=== PATIENT | female | born 1965 | race Hispanic/Latino ===

== ENCOUNTER 2016-11-16 08:49 | Emergency (ER) | payer MEDICARE, OTHER ==
[2016-11-16 08:53] VITALS: BP 147/92; PULSE 92; TEMP 97
[2016-11-16 08:54] VITALS: BMI 32.1
[2016-11-16 09:01] VITALS: O2SAT 98
--- NOTE | 2016-11-16 09:21 | ED PDOC ---
HPI: Back Time Seen by Provider: 11/16/16 09:08 Chief Complaint (Nursing): Back Pain Chief Complaint (Provider): Low back pain History Per: Patient History/Exam Limitations: no limitations Onset/Duration Of Symptoms: Days (2 years) Current Symptoms Are (Timing): Still Present Additional Complaint(s): Left low back spasms off and on for 2 years. Has had multiple doctor visits and studies. Had MRI recently and no acute findings per pt. Pt. states takes ultram as needed for pain. Took tylenol 6 hrs ago. 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 Has no numbness, tingles, incontinence, constipation, weakness. No abd pain, dysuria. No chest pain. No new injury. Not a new pain. Same pain as usual. Past Medical History Reviewed: Nursing Documentation, Vital Signs Vital Signs: Last Vital Signs Temp 97 F L 11/16/16 08:53 Pulse 92 H 11/16/16 08:53 Resp BP 147/92 H 11/16/16 08:53 Pulse Ox 98 11/16/16 08:58 - Medical History PMH: Back Problems, CVA, Hypercholesterolemia, Migraine - Family History Family History: States: Unknown Family Hx - Social History Current smoker - smoking cessation education provided: No Alcohol: None Drugs: Denies - Home Medications Home Medications: Ambulatory Orders Medication Instructions Recorded Diazepam [Valium] 2 mg PO BID PRN #6 tab 06/28/15 Lorazepam [Ativan] 1 tab PO DAILY 06/28/15 Oxcarbazepine [Trileptal] 1 tab PO DAILY 06/28/15 Pramipexole Dihydrochloride 1 tab PO HS 06/28/15 [Mirapex] Simvastatin [Simvastatin] 1 tab PO BID 06/28/15 Topiramate [Topamax] 1 tab LA BID 06/28/15 Tramadol HCl [Ultram] 1 tab PO BID 06/28/15 Warfarin Sodium [Coumadin] 2 tab PO DAILY 06/28/15 traMADol [Ultram] 50 mg PO ASDIR #25 tab 10/20/15 Hydrochlorothiazide 25 mg PO DAILY #30 tablet 12/19/15 traMADol [Ultram] 50 mg PO Q6H PRN #10 tab 10/27/16 - Allergies Allergies/Adverse Reactions: Allergies Allergy/AdvReac Type Severity Reaction Status Date / Time No Known Allergies Allergy Verified 11/16/16 08:57 Review of Systems Constitutional: Negative for: Weakness Cardiovascular: Negative for: Chest Pain, Edema Respiratory: Negative for: Shortness of Breath Gastrointestinal: Negative for: Nausea, Vomiting, Abdominal Pain, Diarrhea, Constipation, Rectal Pain Genitourinary Female: Negative for: Dysuria, Frequency, Incontinence Musculoskeletal: Negative for: Neck Pain, Shoulder Pain, Arm Pain, Back Pain, Hand Pain, Leg Pain Skin: Negative for: Rash Neurological: Negative for: Weakness, Numbness, Incoordination Physical Exam - Reviewed Nursing Documentation Reviewed: Yes Vital Signs Reviewed: Yes - Physical Exam Appears: Positive for: Non-toxic, No Acute Distress Neck: Positive for: Normal, Painless ROM, Supple Cardiovascular/Chest: Positive for: Regular Rate, Rhythm. Negative for: Edema Respiratory: Positive for: Normal Breath Sounds Gastrointestinal/Abdominal: Positive for: Normal Exam, Bowel Sounds, Soft. Negative for: Tenderness Back: Positive for: Other (mild left lateral low back padder; no erythema). Negative for: L CVA Tenderness, R CVA Tenderness Extremity: Positive for: Normal ROM, Other (neg straight leg test). Negative for: Tenderness, Pedal Edema Neurologic/Psych: Positive for: Alert, Oriented - ECG O2 Sat by Pulse Oximetry: 98 - Progress ED Course And Treament: 923: Stable. AAOx3. Chronic pain. No new issues today. Ambulates with no issues. Tolerates po. Urinating well. MRI showed disc bulging. Pt. to fu with pcp. No narcotics. Disposition - Clinical Impression Clinical Impression: Chronic back pain - Patient ED Disposition Is Patient to be Admitted: No Counseled Patient/Family Regarding: Diagnosis, Need For Followup - Disposition Referrals: [facility] [Outside] Disposition: Routine/Home Disposition Time: 09:25 Condition: FAIR Additional Instructions: Return if not better in 3 days. Instructions: Chronic Back Pain (ED)
== END 2016-11-16 09:39 | disposition home or self-care (01) ==
LOC: H.ER 08:49
DX: M54.9 Dorsalgia, unspecified (principal); E78.00 Pure hypercholesterolemia, unspecified; Z86.73 Personal history of transient ischemic attack (TIA), and cerebral infarction without residual deficits

== ENCOUNTER 2016-11-29 01:42 | Emergency (ER) | payer MEDICARE, OTHER ==
[2016-11-29 01:42] VITALS: BMI 32.1
[2016-11-29 02:11] VITALS: BP 154/77; RESP 16; TEMP 97.5; O2SAT 100
[2016-11-29] MEDS ORDERED: guaiFENesin 100 mg/5 ml Syrup UD PO STA (02:14)
[2016-11-29] MEDS ORDERED: Albuterol-Ipratrop 3 mg / 0.5 (3 ml) UD INH STA (02:14)
[2016-11-29] MEDS ORDERED: guaiFENesin 100 mg/5 ml Syrup UD ONE (02:15)
[2016-11-29] MEDS ORDERED: Albuterol-Ipratrop 3 mg / 0.5 (3 ml) UD ONE (02:15)
--- NOTE | 2016-11-29 03:29 | ED PDOC ---
HPI: CCC, URI, Sore Throat Time Seen by Provider: 11/29/16 02:06 Chief Complaint (Nursing): Cough, Cold, Congestion Chief Complaint (Provider): Cough & Congestion History Per: Patient History/Exam Limitations: no limitations Onset/Duration Of Symptoms: Days (x2) Current Symptoms Are (Timing): Still Present Location Of Pain: denies: Throat Associated Symptoms: denies: Fever, Sore Throat Ear Symptoms: Bilateral: None Additional Complaint(s): 51 year old female presents to ED with complaint of cough, congestion, and SOB x2 days and has a past medical history of blood clots (taking coumadin) and seizures. (-) fever, chest pain, headache, or sore throat. Notes that she recently quit smoking. PCP: Hortencia Nixon Past Medical History Reviewed: Historical Data, Nursing Documentation, Vital Signs Vital Signs: Last Vital Signs Temp 97.5 F L 11/29/16 02:09 Pulse 80 11/29/16 03:37 Resp 16 11/29/16 02:09 BP 154/77 H 11/29/16 02:09 Pulse Ox 100 11/29/16 03:37 - Medical History PMH: Back Problems, CVA, Hypercholesterolemia, Hyperlipidemia, Migraine, Seizures Denies: No Chronic Diseases - Surgical History Surgical History: Denies: No Surg Hx Other surgeries: Brain surgery - Family History Family History: States: Unknown Family Hx - Social History Current smoker - smoking cessation education provided: Yes (Patient states she has recently quit) Ex-Smoker (has not smoked in the last 12 months): No Drugs: Denies - Home Medications Home Medications: Ambulatory Orders Medication Instructions Recorded Diazepam [Valium] 2 mg PO BID PRN #6 tab 06/28/15 Lorazepam [Ativan] 1 tab PO DAILY 06/28/15 Oxcarbazepine [Trileptal] 1 tab PO DAILY 06/28/15 Pramipexole Dihydrochloride 1 tab PO HS 06/28/15 [Mirapex] Simvastatin [Simvastatin] 1 tab PO BID 06/28/15 Topiramate [Topamax] 1 tab [place] BID 06/28/15 Tramadol HCl [Ultram] 1 tab PO BID 06/28/15 Warfarin Sodium [Coumadin] 2 tab PO DAILY 06/28/15 traMADol [Ultram] 50 mg PO ASDIR #25 tab 10/20/15 Hydrochlorothiazide 25 mg PO DAILY #30 tablet 12/19/15 traMADol [Ultram] 50 mg PO Q6H PRN #10 tab 10/27/16 Albuterol HFA [Ventolin HFA 90 1 - 2 puff IH Q4 PRN #1 inhaler 11/29/16 mcg/actuation (8 g)] Azithromycin [Zithromax] 250 mg PO DAILY #6 tab 11/29/16 guaiFENesin [guaifENESIN] 100 mg PO TID PRN #100 ml 11/29/16 - Allergies Allergies/Adverse Reactions: Allergies Allergy/AdvReac Type Severity Reaction Status Date / Time No Known Allergies Allergy Verified 11/16/16 08:57 Review of Systems ROS Statement: Except As Marked, All Systems Reviewed And Found Negative Constitutional: Negative for: Fever ENT: Positive for: Nose Congestion. Negative for: Throat Pain Cardiovascular: Negative for: Chest Pain Respiratory: Positive for: Cough, Shortness of Breath Neurological: Negative for: Headache Physical Exam - Reviewed Nursing Documentation Reviewed: Yes Vital Signs Reviewed: Yes - Physical Exam Appears: Positive for: Non-toxic, No Acute Distress Skin: Positive for: Normal Color, Warm, Dry Eye Exam: Positive for: Normal appearance, EOMI, PERRL ENT: Positive for: Normal ENT Inspection Neck: Positive for: Normal Cardiovascular/Chest: Positive for: Regular Rate, Rhythm. Negative for: Murmur Respiratory: Positive for: Wheezing (trace bilateral wheezing in bilateral bases of lungs). Negative for: Respiratory Distress Gastrointestinal/Abdominal: Positive for: Soft. Negative for: Tenderness Back: Positive for: Normal Inspection Extremity: Positive for: Normal ROM. Negative for: Deformity, Swelling (no lower extremity edema) Neurologic/Psych: Positive for: Alert, Oriented. Negative for: Motor/Sensory Deficits - ECG ECG: Positive for: Interpreted By Me ECG Rhythm: Positive for: Normal QRS, Sinus Rhythm Interpretation Of ECG: No acute changes. Rate: 80 O2 Sat by Pulse Oximetry: 100 (RA) Pulse Ox Interpretation: Normal - Radiology X-Ray: Interpreted by Me, Viewed By Me X-Ray Interpretation: No Acute Disease, Heart Size (normal) Nexus Criteria: Negative Medical Decision Making Medical Decision Makin Initial plan: * Duoneb 3mL INH * Robitussin 100mg PO * Peak flow pre/post tx * Re-eval 0326 Upon re-evaluation, patient is sleeping. Lungs are clear. Normal pulse ox level. Given albuterol and Robitussin in ED, will be discharged with the same. Azithromycin will also be prescribed given smoking history. Patient will follow up with PCP. Patient is stable for discharge. Patient is medically stable and ready for discharge. Counseling has been provided and patient is in agreement. Return if symptoms persist or acutely worsen. Scribe Attestation: Documented by Paloma Martínez acting as a scribe for Melvin Stiles DO. Scribe Attestation: All medical record entries made by the Scribe were at my direction and personally dictated by me. I have reviewed the chart and agree that the record accurately reflects my personal performance of the history, physical exam, medical decision making, and the department course for this patient. I have also personally directed, reviewed, and agree with the discharge instructions and disposition. Disposition - Clinical Impression Clinical Impression: Cough - Patient ED Disposition Is Patient to be Admitted: No Counseled Patient/Family Regarding: Studies Performed, Diagnosis, Need For Followup, Rx Given - Disposition Referrals: Hortencia Nixon MD [Primary Care Provider] - Disposition: Routine/Home Disposition Time: 03:30 Condition: STABLE Additional Instructions: Return to ER for any worse or new symptoms. Prescriptions: guaiFENesin [guaifENESIN] 100 mg PO TID PRN #100 ml PRN Reason: Cough Albuterol HFA [Ventolin HFA 90 mcg/actuation (8 g)] 1 - 2 puff IH Q4 PRN #1 inhaler PRN Reason: Shortness Of Breath Azithromycin [Zithromax] 250 mg PO DAILY #6 tab Instructions: Acute Cough (ED)
[2016-11-29 03:36] VITALS: PULSE 80
--- NOTE | 2016-11-29 08:32 | RAD ---
HISTORY: cough COMPARISON: Comparison is made to the previous study dated 07/31/2011 TECHNIQUE: Chest PA and lateral FINDINGS: LUNGS: No evidence of focal infiltrate or consolidation in the lungs. Prominent lung markings. PLEURA: No significant pleural effusion identified. No pneumothorax apparent. CARDIOVASCULAR: Normal. OSSEOUS STRUCTURES: No significant abnormalities. VISUALIZED UPPER ABDOMEN: Normal. OTHER FINDINGS: None. IMPRESSION: No radiographic evidence of pneumonia. Prominent lung markings and bronchial wall thickening suspicious for bronchitis.
== END 2016-11-29 03:52 | disposition home or self-care (01) ==
LOC: H.ER 01:42
DX: R05 Cough (principal)

== ENCOUNTER 2016-12-18 12:10 | Emergency (ER) | payer MEDICARE, OTHER ==
[2016-12-18 12:10] VITALS: BMI 32.1
[2016-12-18 12:28] VITALS: BP 141/82; PULSE 91; RESP 16; TEMP 99.4; O2SAT 100
--- NOTE | 2016-12-18 12:41 | ED PDOC ---
Lower Extremity Pain/Injury Time Seen by Provider: 12/18/16 12:39 Chief Complaint (Nursing): Lower Extremity Problem/Injury Chief Complaint (Provider): left foot pain History Per: Patient (51 y/o femlae here with left foot pain after striking foot against cart. Patient notes pain by lateral aspect of foot. No head injury /fall. Is on coumadin for h/o CVA.) Past Medical History Reviewed: Historical Data, Nursing Documentation, Vital Signs Vital Signs: Last Vital Signs Temp 99.4 F 12/18/16 12:24 Pulse 91 H 12/18/16 12:24 Resp 16 12/18/16 12:24 BP 141/82 12/18/16 12:24 Pulse Ox 100 12/18/16 12:24 - Medical History PMH: Back Problems, CVA, Hypercholesterolemia, Hyperlipidemia, Migraine, Seizures - Family History Family History: States: Unknown Family Hx - Home Medications Home Medications: Ambulatory Orders Medication Instructions Recorded Diazepam [Valium] 2 mg PO BID PRN #6 tab 06/28/15 Lorazepam [Ativan] 1 tab PO DAILY 06/28/15 Oxcarbazepine [Trileptal] 1 tab PO DAILY 06/28/15 Pramipexole Dihydrochloride 1 tab PO HS 06/28/15 [Mirapex] Simvastatin [Simvastatin] 1 tab PO BID 06/28/15 Topiramate [Topamax] 1 tab SC BID 06/28/15 Tramadol HCl [Ultram] 1 tab PO BID 06/28/15 Warfarin Sodium [Coumadin] 2 tab PO DAILY 06/28/15 traMADol [Ultram] 50 mg PO ASDIR #25 tab 10/20/15 Hydrochlorothiazide 25 mg PO DAILY #30 tablet 12/19/15 traMADol [Ultram] 50 mg PO Q6H PRN #10 tab 10/27/16 Albuterol HFA [Ventolin HFA 90 1 - 2 puff IH Q4 PRN #1 inhaler 11/29/16 mcg/actuation (8 g)] Azithromycin [Zithromax] 250 mg PO DAILY #6 tab 11/29/16 guaiFENesin [guaifENESIN] 100 mg PO TID PRN #100 ml 11/29/16 oxyCODONE/Acetaminophen [Percocet 1 ea PO Q6 PRN #8 tab 12/18/16 5/325 mg Tab] - Allergies Allergies/Adverse Reactions: Allergies Allergy/AdvReac Type Severity Reaction Status Date / Time No Known Allergies Allergy Verified 12/18/16 12:24 Review of Systems ROS Statement: Except As Marked, All Systems Reviewed And Found Negative Musculoskeletal: Positive for: Foot Pain Physical Exam - Reviewed Nursing Documentation Reviewed: Yes Vital Signs Reviewed: Yes - Physical Exam Appears: Positive for: Well, Non-toxic, No Acute Distress Head Exam: Positive for: ATRAUMATIC, NORMAL INSPECTION, NORMOCEPHALIC Skin: Positive for: Normal Color, Warm, DRY Eye Exam: Positive for: EOMI, Normal appearance, PERRL ENT: Positive for: Normal ENT Inspection Neck: Positive for: Normal, Painless ROM Cardiovascular/Chest: Positive for: Regular Rate, Rhythm Respiratory: Positive for: CNT, Normal Breath Sounds Gastrointestinal/Abdominal: Positive for: Normal Exam, Bowel Sounds, Soft Back: Positive for: Normal Inspection Extremity: Positive for: Normal ROM, Tenderness (tenderness/swelling fourth/ fifth digit of left foot. Nontender ankle.) Neurologic/Psych: Positive for: Alert, Oriented - ECG O2 Sat by Pulse Oximetry: 100 - Progress ED Course And Treament: Acetaminophen 975mg x 1 dose. Patient refused tylenol in ED Ultram 50 mg x 1 dose Xry of foot: (+) fx of proximal phalanx of fifth toe. Darvin tape and Hard shoe given Disposition - Clinical Impression Clinical Impression: Toe fracture, right - Patient ED Disposition Is Patient to be Admitted: No - Disposition Referrals: [facility] [[facility]] Disposition: Routine/Home Disposition Time: 13:06 Condition: FAIR Prescriptions: oxyCODONE/Acetaminophen [Percocet 5/325 mg Tab] 1 ea PO Q6 PRN #8 tab PRN Reason: Pain, Severe (8-10) Instructions: Toe Fracture (ED)
--- NOTE | 2016-12-18 16:43 | RAD ---
PROCEDURE: Left Foot Radiographs. HISTORY: injury COMPARISON: None. FINDINGS: BONES: Acute fracture proximal phalanx 5th digit. JOINTS: Normal. SOFT TISSUES: Soft tissue swelling attests to the acuity of the fracture. OTHER FINDINGS: None. IMPRESSION: Acute fracture 5th digit. Concordant results with the preliminary interpretation rendered by the emergency department physician procedure.
== END 2016-12-18 13:28 | disposition home or self-care (01) ==
LOC: H.ER 12:10
DX: S92.911A Unspecified fracture of right toe(s), initial encounter for closed fracture (principal); W22.8XXA Striking against or struck by other objects, initial encounter; Y92.89 Other specified places as the place of occurrence of the external cause; E78.00 Pure hypercholesterolemia, unspecified; Z79.01 Long term (current) use of anticoagulants; Z86.73 Personal history of transient ischemic attack (TIA), and cerebral infarction without residual deficits

== ENCOUNTER 2017-07-03 02:38 | Emergency (ER) | payer MEDICARE, OTHER ==
[2017-07-03 02:38] VITALS: BMI 29.2
[2017-07-03 03:11] VITALS: BP 149/89; PULSE 91; RESP 16; TEMP 98.6; O2SAT 98
[2017-07-03] MEDS ORDERED: Albuterol-Ipratrop 3 mg / 0.5 (3 ml) UD INH STA ×2 (03:43→04:09)
[2017-07-03] MEDS ORDERED: Albuterol-Ipratrop 3 mg / 0.5 (3 ml) UD ONE (03:54)
--- NOTE | 2017-07-03 04:32 | ED PDOC ---
HPI: CCC, URI, Sore Throat Time Seen by Provider: 07/03/17 03:44 Chief Complaint (Nursing): Flu-like Symptoms Chief Complaint (Provider): flu like symptoms History Per: Patient History/Exam Limitations: no limitations Onset/Duration Of Symptoms: Days (14), Persistent Current Symptoms Are (Timing): Still Present Location Of Pain: Diffuse Myalgias, Headache Sick Contacts (Context): None Associated Symptoms: Fever, Chills, Sore Throat, Cough, Sputum, Myalgias. denies: Neck Pain, Sinus Drainage, Nasal Congestion, Nausea, Vomiting, Diarrhea Ear Symptoms: Bilateral: None Past Medical History Reviewed: Historical Data, Nursing Documentation, Vital Signs Vital Signs: Last Vital Signs Temp 98.6 F 07/03/17 03:09 Pulse 91 H 07/03/17 03:09 Resp 16 07/03/17 03:09 BP 149/89 07/03/17 03:09 Pulse Ox 98 07/03/17 03:09 - Medical History PMH: Back Problems, CVA, Hypercholesterolemia, Hyperlipidemia, Migraine, Seizures - Family History Family History: States: Unknown Family Hx - Home Medications Home Medications: Ambulatory Orders Medication Instructions Recorded Diazepam [Valium] 2 mg PO BID PRN #6 tab 06/28/15 Lorazepam [Ativan] 1 tab PO DAILY 06/28/15 Oxcarbazepine [Trileptal] 1 tab PO DAILY 06/28/15 Pramipexole Dihydrochloride 1 tab PO HS 06/28/15 [Mirapex] Simvastatin [Simvastatin] 1 tab PO BID 06/28/15 Topiramate [Topamax] 1 tab [place] BID 06/28/15 Tramadol HCl [Ultram] 1 tab PO BID 06/28/15 Warfarin Sodium [Coumadin] 2 tab PO DAILY 06/28/15 traMADol [Ultram] 50 mg PO ASDIR #25 tab 10/20/15 Hydrochlorothiazide 25 mg PO DAILY #30 tablet 12/19/15 traMADol [Ultram] 50 mg PO Q6H PRN #10 tab 10/27/16 Albuterol HFA [Ventolin HFA 90 1 - 2 puff IH Q4 PRN #1 inhaler 11/29/16 mcg/actuation (8 g)] Azithromycin [Zithromax] 250 mg PO DAILY #6 tab 11/29/16 guaiFENesin [guaifENESIN] 100 mg PO TID PRN #100 ml 11/29/16 Acetaminophen/Codeine 1 tab PO Q6 #8 tab 12/18/16 [Tylenol/Codeine 300 MG/30 MG] Albuterol HFA [Ventolin HFA 90 2 puff IH Q6 #200 puff 07/03/17 mcg/actuation (8 g)] Promethazine DM [Phenergan DM 5 ml PO BID #60 ml 07/03/17 Syrup] - Allergies Allergies/Adverse Reactions: Allergies Allergy/AdvReac Type Severity Reaction Status Date / Time No Known Allergies Allergy Verified 07/03/17 03:09 Curb-65 Severity Score - CURB-65 Severity Score Confusion: No Bun >19mg/dl (>7mmol/L): No Respiratory Rate greater than/equal to 30: No Systolic BP <90 or Diastolic BP less than/equal 60mmHg: No Age >64: No Curb-65 Score: 0 Percentage 30-day mortality: 0.6% Review of Systems ROS Statement: Except As Marked, All Systems Reviewed And Found Negative Constitutional: Positive for: Fever, Chills, Malaise Respiratory: Positive for: Cough, Sputum Gastrointestinal: Negative for: Nausea, Vomiting, Abdominal Pain, Diarrhea Physical Exam - Reviewed Nursing Documentation Reviewed: Yes Vital Signs Reviewed: Yes - Physical Exam Appears: Positive for: Non-toxic, No Acute Distress, Uncomfortable Head Exam: Positive for: ATRAUMATIC, NORMAL INSPECTION, NORMOCEPHALIC Skin: Positive for: Normal Color, Warm, DRY Eye Exam: Positive for: EOMI, Normal appearance, PERRL ENT: Positive for: Normal ENT Inspection Cardiovascular/Chest: Positive for: Regular Rate, Rhythm Respiratory: Positive for: CNT, Normal Breath Sounds Extremity: Positive for: Normal ROM Neurologic/Psych: Positive for: Alert, Oriented - ECG O2 Sat by Pulse Oximetry: 98 - Radiology X-Ray: Interpreted by Al X-Ray Interpretation: No Acute Disease Nebulizer Treatments/Peak Flow - Duonebs Number of Bronchodilator Doses given?: 1 - Steroid Treatment Steroid: Not Clinically Indicated - Clinical Response Clinical Response: Improved Medical Decision Making Medical Decision Making: dX: viral URI/bronchitis d/c on promethezine/albuterol and advised to have pmd f.u Disposition - Clinical Impression Clinical Impression: Bronchitis - Patient ED Disposition Is Patient to be Admitted: No Counseled Patient/Family Regarding: Diagnosis, Need For Followup, Rx Given - Disposition Referrals: Hortencia Nixon MD [Primary Care Provider] - Disposition: Routine/Home Disposition Time: 04:34 Condition: STABLE Prescriptions: Albuterol HFA [Ventolin HFA 90 mcg/actuation (8 g)] 2 puff IH Q6 #200 puff Promethazine DM [Phenergan DM Syrup] 5 ml PO BID #60 ml Instructions: Acute Bronchitis (ED)
--- NOTE | 2017-07-03 08:31 | RAD ---
HISTORY: Cough. COMPARISON: 11/29/2016. TECHNIQUE: Chest PA and lateral FINDINGS: LUNGS: No active pulmonary disease. PLEURA: No significant pleural effusion identified. No pneumothorax apparent. CARDIOVASCULAR: No radiographic findings to suggest acute or significant cardiovascular disease. OSSEOUS STRUCTURES: No significant abnormalities. VISUALIZED UPPER ABDOMEN: Normal. OTHER FINDINGS: None. IMPRESSION: No active disease. No significant interval change compared to the prior examination(s). Please note: No preliminary interpretation of this examination rendered by emergency department personnel (Physician and/or PA declined to provide preliminary report of their findings/ observations).
== END 2017-07-03 04:54 | disposition home or self-care (01) ==
LOC: H.ER 02:38
DX: J40 Bronchitis, not specified as acute or chronic (principal); E78.00 Pure hypercholesterolemia, unspecified; Z79.01 Long term (current) use of anticoagulants; Z86.73 Personal history of transient ischemic attack (TIA), and cerebral infarction without residual deficits

== ENCOUNTER 2017-10-14 04:15 | Emergency (ER) | payer MEDICARE, OTHER ==
[2017-10-14 04:16] VITALS: BMI 29.2
[2017-10-14 04:44] VITALS: BP 109/75; PULSE 83; RESP 16; TEMP 97.8; O2SAT 99
--- NOTE | 2017-10-14 05:18 | ED PDOC ---
HPI: Dental Pain/Injury Time Seen by Provider: 10/14/17 04:15 Chief Complaint (Nursing): Dental Pain Chief Complaint (Provider): Dental Pain History Per: Patient History/Exam Limitations: no limitations Onset/Duration Of Symptoms: Days (x3) Current Symptoms Are (Timing): Still Present Additional Complaint(s): 52 year old female presents to ED with complaints of dental pain x3 days and has a history of tooth issues with a prior extraction. Notes pain in right upper back and right lower back regions of the mouth. Patient states that she works with a dentist who informed her to follow up regarding pain but notes her dentist is unavailable currently. (-) fever or vomiting. PCP: Moe Staley Past Medical History Reviewed: Historical Data, Nursing Documentation, Vital Signs Vital Signs: Last Vital Signs Temp 97.8 F 10/14/17 04:41 Pulse 83 10/14/17 04:41 Resp 16 10/14/17 04:41 BP 109/75 10/14/17 04:41 Pulse Ox 99 10/14/17 04:41 - Medical History PMH: Back Problems, CVA, Hypercholesterolemia, Hyperlipidemia, Migraine, Seizures, Chronic Pain (chronic back pain) - Surgical History Surgical History: No Surg Hx - Family History Family History: States: Unknown Family Hx - Social History Current smoker - smoking cessation education provided: No Alcohol: None Drugs: Denies - Home Medications Home Medications: Ambulatory Orders Medication Instructions Recorded Diazepam [Valium] 2 mg PO BID PRN #6 tab 06/28/15 Lorazepam [Ativan] 1 tab PO DAILY 06/28/15 Oxcarbazepine [Trileptal] 1 tab PO DAILY 06/28/15 Pramipexole Dihydrochloride 1 tab PO HS 06/28/15 [Mirapex] Simvastatin [Simvastatin] 1 tab PO BID 06/28/15 Topiramate [Topamax] 1 tab VT BID 06/28/15 Tramadol HCl [Ultram] 1 tab PO BID 06/28/15 Warfarin Sodium [Coumadin] 2 tab PO DAILY 06/28/15 traMADol [Ultram] 50 mg PO ASDIR #25 tab 10/20/15 Hydrochlorothiazide 25 mg PO DAILY #30 tablet 12/19/15 traMADol [Ultram] 50 mg PO Q6H PRN #10 tab 10/27/16 Albuterol HFA [Ventolin HFA 90 1 - 2 puff IH Q4 PRN #1 inhaler 11/29/16 mcg/actuation (8 g)] Azithromycin [Zithromax] 250 mg PO DAILY #6 tab 11/29/16 guaiFENesin [guaifENESIN] 100 mg PO TID PRN #100 ml 11/29/16 Acetaminophen/Codeine 1 tab PO Q6 #8 tab 12/18/16 [Tylenol/Codeine 300 MG/30 MG] Albuterol HFA [Ventolin HFA 90 2 puff IH Q6 #200 puff 07/03/17 mcg/actuation (8 g)] Promethazine DM [Phenergan DM 5 ml PO BID #60 ml 07/03/17 Syrup] Amoxicillin 500 mg PO BID #14 tablet 10/14/17 - Allergies Allergies/Adverse Reactions: Allergies Allergy/AdvReac Type Severity Reaction Status Date / Time hydromorphone [From Dilaudid] Allergy RASH Verified 10/14/17 04:41 Review of Systems ROS Statement: Except As Marked, All Systems Reviewed And Found Negative Constitutional: Negative for: Fever ENT: Positive for: Other ((+) tooth pain) Gastrointestinal: Negative for: Vomiting Physical Exam - Reviewed Nursing Documentation Reviewed: Yes Vital Signs Reviewed: Yes - Physical Exam Appears: Positive for: Non-toxic, No Acute Distress Skin: Positive for: Normal Color, Warm, Dry Eye Exam: Positive for: Normal appearance, EOMI, PERRL ENT: Positive for: Normal ENT Inspection (No abscess noted, no fluctuance or necrosis) Neck: Positive for: Normal, Painless ROM, Supple Cardiovascular/Chest: Positive for: Regular Rate, Rhythm Respiratory: Positive for: Normal Breath Sounds Gastrointestinal/Abdominal: Positive for: Bowel Sounds, Soft. Negative for: Tenderness Extremity: Positive for: Normal ROM - ECG O2 Sat by Pulse Oximetry: 99 (RA) Pulse Ox Interpretation: Normal Medical Decision Making Medical Decision Makin Initial impression: tooth decay Initial plan: * Toradol 60mg IM * Re-eval pt feels better. will follow up with dentist. Scribe Attestation: Documented by Paloma Martínez acting as a scribe for Trisha Johnson MD. Scribe Attestation: All medical record entries made by the Scribe were at my direction and personally dictated by me. I have reviewed the chart and agree that the record accurately reflects my personal performance of the history, physical exam, medical decision making, and the department course for this patient. I have also personally directed, reviewed, and agree with the discharge instructions and disposition. Disposition - Clinical Impression Clinical Impression: Pain, dental - Patient ED Disposition Is Patient to be Admitted: No Counseled Patient/Family Regarding: Studies Performed, Diagnosis, Need For Followup - Disposition Referrals: Moe Staley MD [Primary Care Provider] - Disposition: Routine/Home Disposition Time: 06:00 Condition: IMPROVED Additional Instructions: follow up with your dentist in 1-2 days return to the ED with any worsening or concerning symptoms Prescriptions: Amoxicillin 500 mg PO BID #14 tablet Instructions: Toothache (ED) Forms: [facility] (Scottish)
== END 2017-10-14 06:00 | disposition home or self-care (01) ==
LOC: H.ER 04:15
DX: K02.9 Dental caries, unspecified (principal); Z86.73 Personal history of transient ischemic attack (TIA), and cerebral infarction without residual deficits; Z88.5 Allergy status to narcotic agent; Z79.01 Long term (current) use of anticoagulants
CPT/HCPCS: 96372; 99282; J1885

== ENCOUNTER 2017-11-12 09:37 | Emergency (ER) | payer MEDICARE, OTHER ==
[2017-11-12 09:45] VITALS: BMI 34.0
[2017-11-12] MEDS ORDERED: Albuterol-Ipratrop 3 mg / 0.5 (3 ml) UD IH STA (10:11)
[2017-11-12] MEDS ORDERED: Sodium Chloride 0.9% 500 ML IV STA (10:11)
--- NOTE | 2017-11-12 10:17 | ED PDOC ---
HPI: SOB/CHF/COPD Time Seen by Provider: 11/12/17 09:49 Chief Complaint (Nursing): Shortness Of Breath Chief Complaint (Provider): Short of breath History Per: Patient History/Exam Limitations: no limitations Onset/Duration Of Symptoms: Days Current Symptoms Are (Timing): Still Present Additional History Per: Patient Additional Complaint(s): Pt. with dyspnea, pain under both ribs going to back, nasal congestion. No chest pain, headaches, dizziness, lower abd pain, leg pain, long distance travel , or hormone tx. Pt. feels weak mild all over. Had vomit and diarrhea 2 weeks ago, but gone now. Past Medical History Reviewed: Nursing Documentation, Vital Signs Vital Signs: Last Vital Signs Temp 98 F 11/12/17 09:45 Pulse 102 H 11/12/17 09:45 Resp 20 11/12/17 09:53 BP 145/66 11/12/17 09:45 Pulse Ox 98 11/12/17 10:19 - Medical History PMH: Back Problems, CVA, Hypercholesterolemia, Hyperlipidemia, Migraine, Seizures, Chronic Pain (chronic back pain) Denies: Chronic Kidney Disease - Surgical History Surgical History: Denies: Appendectomy, Back Surgery Other surgeries: hysterectomy - Family History Family History: States: Unknown Family Hx - Social History Current smoker - smoking cessation education provided: No Alcohol: None Drugs: Denies - Immunization History Hx Tetanus Toxoid Vaccination: No Hx Influenza Vaccination: No Hx Pneumococcal Vaccination: No - Home Medications Home Medications: Ambulatory Orders Medication Instructions Recorded Diazepam [Valium] 2 mg PO BID PRN #6 tab 06/28/15 Lorazepam [Ativan] 1 tab PO DAILY 06/28/15 Oxcarbazepine [Trileptal] 1 tab PO DAILY 06/28/15 Pramipexole Dihydrochloride 1 tab PO HS 06/28/15 [Mirapex] Simvastatin [Simvastatin] 1 tab PO BID 06/28/15 Topiramate [Topamax] 1 tab [place] BID 06/28/15 Tramadol HCl [Ultram] 1 tab PO BID 06/28/15 Warfarin Sodium [Coumadin] 2 tab PO DAILY 06/28/15 traMADol [Ultram] 50 mg PO ASDIR #25 tab 10/20/15 Hydrochlorothiazide 25 mg PO DAILY #30 tablet 12/19/15 traMADol [Ultram] 50 mg PO Q6H PRN #10 tab 10/27/16 Albuterol HFA [Ventolin HFA 90 1 - 2 puff IH Q4 PRN #1 inhaler 11/29/16 mcg/actuation (8 g)] Azithromycin [Zithromax] 250 mg PO DAILY #6 tab 11/29/16 guaiFENesin [guaifENESIN] 100 mg PO TID PRN #100 ml 11/29/16 Acetaminophen/Codeine 1 tab PO Q6 #8 tab 12/18/16 [Tylenol/Codeine 300 MG/30 MG] Albuterol HFA [Ventolin HFA 90 2 puff IH Q6 #200 puff 07/03/17 mcg/actuation (8 g)] Promethazine DM [Phenergan DM 5 ml PO BID #60 ml 07/03/17 Syrup] Amoxicillin 500 mg PO BID #14 tablet 10/14/17 - Allergies Allergies/Adverse Reactions: Allergies Allergy/AdvReac Type Severity Reaction Status Date / Time ciprofloxacin [From Cipro] Allergy RASH Verified 11/12/17 10:39 hydromorphone [From Dilaudid] Allergy RASH Verified 10/14/17 04:41 Review of Systems ROS Statement: Except As Marked, All Systems Reviewed And Found Negative Constitutional: Positive for: Weakness ENT: Positive for: Nose Congestion Respiratory: Positive for: Shortness of Breath. Negative for: Cough Gastrointestinal: Positive for: Abdominal Pain (under ribs) Musculoskeletal: Negative for: Neck Pain Neurological: Positive for: Weakness Physical Exam - Reviewed Nursing Documentation Reviewed: Yes Vital Signs Reviewed: Yes - Physical Exam Appears: Positive for: Non-toxic, No Acute Distress Head Exam: Positive for: ATRAUMATIC, NORMAL INSPECTION, NORMOCEPHALIC Skin: Positive for: Normal Color, Warm, DRY Eye Exam: Positive for: EOMI, Normal appearance, PERRL ENT: Positive for: Normal ENT Inspection Neck: Positive for: Normal, Painless ROM Cardiovascular/Chest: Positive for: Regular Rate, Rhythm Respiratory: Positive for: CNT, Normal Breath Sounds Gastrointestinal/Abdominal: Positive for: Bowel Sounds, Soft, Tenderness (mild across upper abd near ribs) Back: Positive for: Normal Inspection. Negative for: L CVA Tenderness, R CVA Tenderness Extremity: Positive for: Normal ROM. Negative for: Tenderness, Pedal Edema Neurologic/Psych: Positive for: Alert, Oriented - Laboratory Results Result Diagrams: 11/12/17 11:01 11/12/17 11:01 Interpretation Of Abn Labs: 8.2 inr - ECG ECG: Positive for: Interpreted By Me, Viewed By Me ECG Rhythm: Positive for: Normal QRS, Normal ST Segment, Sinus Rhythm O2 Sat by Pulse Oximetry: 98 Pulse Ox Interpretation: Normal - Radiology X-Ray: Read By Radiologist X-Ray Interpretation: No Acute Disease - CT Scan/US ct Other Rad Studies (CT/US): Read By Radiologist Other Rad Interpretation: no acute - Progress ED Course And Treament: 1419: Feels better. AAOx3. No dyspnea or pain. Pt. INR elevated. Per uptodate (pt. with no bleeding or risk factors for fa, omit the next one to two doses of warfarin, monitor INR more frequently, and resume treatment at a lower dose when INR is in therapeutic range. Pt. to fu with pcp for repeat INR and determine dosing. Disposition - Clinical Impression Clinical Impression: Supratherapeutic INR, Dyspnea - Patient ED Disposition Is Patient to be Admitted: No Counseled Patient/Family Regarding: Studies Performed, Diagnosis, Need For Followup - Disposition Referrals: [facility] [Outside] - 11/13/17 Disposition: Routine/Home Disposition Time: 14:22 Condition: STABLE Additional Instructions: Omit the next two doses of warfarin (coumadin) and resume treatment at a lower dose when INR is in therapeutic range (see your doctor tomorrow for this). See your doctor for repeat INR. Return if not better in 3 days. Instructions: Shortness of Breath (Dyspnea) (DC), What to Do When Your INR Is Too High Forms: [employer] (Azeri), [facility] ED School/Work Excuse
[2017-11-12] MEDS ORDERED: Albuterol-Ipratrop 3 mg / 0.5 (3 ml) UD ONE (10:25)
--- NOTE | 2017-11-12 10:35 | RAD ---
HISTORY: dyspnea COMPARISON: Chest radiograph dated 07/03/2017. FINDINGS: LUNGS: Low lung volumes. No active pulmonary disease. PLEURA: No significant pleural effusion identified, no pneumothorax apparent. CARDIOVASCULAR: Normal. OSSEOUS STRUCTURES: No significant abnormalities. VISUALIZED UPPER ABDOMEN: Normal. OTHER FINDINGS: None. IMPRESSION: No active disease.
[2017-11-12 11:07] LABS: BASO % 0.6 % (0.0-2.0); EOS # 0.1 K/uL (0.0-0.7); EOS % 1.9 % (0.0-4.0); HEMOGLOBIN 11.6 g/dL (12.0-16.0); LYMPH # 1.8 K/uL (1.0-4.3); LYMPH % 32.8 % (20.0-40.0); MEAN CELL VOLUME 87.8 fl (81.0-99.0); MEAN CORPUSCULAR HEMOGLOBIN 29.6 pg (27.0-31.0); MEAN CORPUSCULAR HGB CONC 33.8 g/dL (33.0-37.0); MEAN PLATELET VOLUME 7.8 fl (7.2-11.7); MONO # 0.4 K/uL (0.0-0.8); MONO % 6.7 % (0.0-10.0); NEUT # 3.1 K/uL (1.8-7.0); NRBC % 0.2 % (0.0-0.0); RBC 3.9 Mil/uL (3.80-5.20); RED CELL DISTRIBUTION WIDTH 14.2 % (11.5-14.5); WHITE BLOOD COUNT 5.4 K/uL (4.8-10.8)
[2017-11-12 11:20] LABS: ALB/GLOB RATIO 1.3 (1.0-2.1); ALBUMIN 3.7 g/dL (3.5-5.0); ALT/SGPT 117 U/L (9-52); AST/SGOT 83 U/L (14-36); BLOOD UREA NITROGEN 12 mg/dl (7-17); CALCIUM 8.5 mg/dL (8.4-10.2); GFR AFRICAN-AMERICAN > 60; GFR NON-AFRICAN AMERICAN > 60; LIPASE 86 U/L (23-300)
[2017-11-12 11:32] LABS: B-TYPE NATRIURETIC PEPTIDE 81.6 pg/ml (0-900); INR 8.2 (0.9-1.2); PARTIAL THROMBOPLASTIN TIME 48.1 Seconds (25.6-37.1)
[2017-11-12 12:30] LABS: PROTHROMBIN TIME 94.7 Seconds (9.8-13.1)
[2017-11-12] MEDS ORDERED: Iodixanol 320 MG/ML 100 ML BOTTLE IV ONE (12:47)
--- NOTE | 2017-11-12 13:27 | CT ---
PROCEDURE: CT Chest with contrast (Pulmonary Angiogram) HISTORY: chest pain COMPARISON: None available. TECHNIQUE: Axial computed tomography images were obtained of the chest in the pulmonary arterial phase of enhancement. Coronal and sagittal reformatted images were created and reviewed. Intravenous contrast dose: 95 cc Visipaque 320 Mean Hounsfield unit values in the main pulmonary artery: 208.66 Radiation dose: Total exam DLP = 431.70 mGy-cm. This CT exam was performed using one or more of the following dose reduction techniques: Automated exposure control, adjustment of the mA and/or kV according to patient size, and/or use of iterative reconstruction technique. FINDINGS: PULMONARY ARTERIES: Unremarkable. No pulmonary embolism. AORTA: No acute findings. No thoracic aortic aneurysm. LUNGS: Unremarkable. No nodule, mass or pulmonary consolidation. PLEURAL SPACES: Unremarkable. No effusion or pneuomothorax. HEART: Unremarkable. No cardiomegaly. No significant pericardial effusion. LYMPH NODES: No lymphadenopathy. BONES, CHEST WALL: Unremarkable. No fracture or destructive lesion OTHER FINDINGS: Hepatomegaly, hepatic steatosis IMPRESSION: Unremarkable CT pulmonary angiogram. No pulmonary embolus. Limitations of the current examination: Suboptimal opacification of the pulmonary arteries both qualitatively and quantitatively. Nondiagnostic examination in the Assessment of subsegmental branch vessels for pulmonary embolism
[2017-11-12 14:43] VITALS: BP 151/89; PULSE 85; RESP 16; TEMP 98.1; O2SAT 96
--- NOTE | 2017-11-12 15:11 | CARD ---
APPROVED REPORT EKG Measurement Heart [id number] <Conclusion> Sinus tachycardia Otherwise normal ECG
== END 2017-11-12 14:45 | disposition home or self-care (01) ==
LOC: H.ER 09:37
DX: R06.00 Dyspnea, unspecified (principal); R79.1 Abnormal coagulation profile; E78.00 Pure hypercholesterolemia, unspecified; G89.29 Other chronic pain; I26.99 Other pulmonary embolism without acute cor pulmonale; Z79.01 Long term (current) use of anticoagulants; Z86.73 Personal history of transient ischemic attack (TIA), and cerebral infarction without residual deficits; Z88.5 Allergy status to narcotic agent; Z90.710 Acquired absence of both cervix and uterus
CPT/HCPCS: 71045; 71275; 80053; 83690; 83880; 84484; 85025; 85610; 85730; 87804; 93005; 94640; 96360; 96361; 99285; J7040; Q9967

== ENCOUNTER 2017-11-22 12:26 | Emergency (ER) | payer MEDICARE, OTHER ==
[2017-11-22 12:27] VITALS: BMI 34.0
[2017-11-22 12:40] VITALS: BP 123/84; PULSE 93; RESP 18; TEMP 98.3; O2SAT 97
[2017-11-22] MEDS ORDERED: Morphine 4 MG/ML VIAL IM STA (12:54)
[2017-11-22] MEDS ORDERED: Morphine 4 MG/ML VIAL ONE (13:07)
--- NOTE | 2017-11-22 13:19 | ED PDOC ---
HPI: Dental Pain/Injury Time Seen by Provider: 11/22/17 12:44 Chief Complaint (Nursing): Dental Pain Chief Complaint (Provider): Dental Pain History Per: Patient History/Exam Limitations: no limitations Onset/Duration Of Symptoms: Days Current Symptoms Are (Timing): Still Present Additional Complaint(s): 52 year old female presents to the emergency department with a complaint of pain and swelling to the right lower jaw region with dental pain for the past few days. Denies taking any pain medications, fever, headache, sore throat, chills, or rash. PMD: Dr. Moe Staley MD Past Medical History Reviewed: Historical Data, Nursing Documentation, Vital Signs Vital Signs: Last Vital Signs Temp 98.3 F 11/22/17 12:37 Pulse 93 H 11/22/17 12:37 Resp 18 11/22/17 12:37 BP 123/84 11/22/17 12:37 Pulse Ox 97 11/22/17 12:37 - Medical History PMH: Back Problems, CVA, Hypercholesterolemia, Hyperlipidemia, Migraine, Seizures, Chronic Pain (chronic back pain) Denies: Chronic Kidney Disease - Surgical History Surgical History: Denies: Appendectomy, Back Surgery - Family History Family History: States: Unknown Family Hx - Social History Current smoker - smoking cessation education provided: No Ex-Smoker (has not smoked in the last 12 months): Yes Alcohol: Occasional Drugs: Denies - Immunization History Hx Tetanus Toxoid Vaccination: No Hx Influenza Vaccination: No Hx Pneumococcal Vaccination: No - Home Medications Home Medications: Ambulatory Orders Medication Instructions Recorded Diazepam [Valium] 2 mg PO BID PRN #6 tab 06/28/15 Lorazepam [Ativan] 1 tab PO DAILY 06/28/15 Oxcarbazepine [Trileptal] 1 tab PO DAILY 06/28/15 Pramipexole Dihydrochloride 1 tab PO HS 06/28/15 [Mirapex] Simvastatin [Simvastatin] 1 tab PO BID 06/28/15 Topiramate [Topamax] 1 tab [place] BID 06/28/15 Tramadol HCl [Ultram] 1 tab PO BID 06/28/15 Warfarin Sodium [Coumadin] 2 tab PO DAILY 06/28/15 traMADol [Ultram] 50 mg PO ASDIR #25 tab 10/20/15 Hydrochlorothiazide 25 mg PO DAILY #30 tablet 12/19/15 traMADol [Ultram] 50 mg PO Q6H PRN #10 tab 10/27/16 Albuterol HFA [Ventolin HFA 90 1 - 2 puff IH Q4 PRN #1 inhaler 11/29/16 mcg/actuation (8 g)] Azithromycin [Zithromax] 250 mg PO DAILY #6 tab 11/29/16 guaiFENesin [guaifENESIN] 100 mg PO TID PRN #100 ml 11/29/16 Acetaminophen/Codeine 1 tab PO Q6 #8 tab 12/18/16 [Tylenol/Codeine 300 MG/30 MG] Albuterol HFA [Ventolin HFA 90 2 puff IH Q6 #200 puff 07/03/17 mcg/actuation (8 g)] Promethazine DM [Phenergan DM 5 ml PO BID #60 ml 07/03/17 Syrup] Amoxicillin 500 mg PO BID #14 tablet 10/14/17 Clindamycin [Cleocin] 300 mg PO TID #30 cap 11/22/17 traMADol [Ultram] 50 mg PO TID PRN #15 tab 11/22/17 - Allergies Allergies/Adverse Reactions: Allergies Allergy/AdvReac Type Severity Reaction Status Date / Time ciprofloxacin [From Cipro] Allergy RASH Verified 11/12/17 10:39 hydromorphone [From Dilaudid] Allergy RASH Verified 10/14/17 04:41 Review of Systems ROS Statement: Except As Marked, All Systems Reviewed And Found Negative (As per HPI, otherwise negative) Constitutional: Negative for: Fever, Chills ENT: Positive for: Other (Right-sided dental pain). Negative for: Throat Pain Skin: Negative for: Rash Neurological: Negative for: Headache Physical Exam - Reviewed Nursing Documentation Reviewed: Yes Vital Signs Reviewed: Yes - Physical Exam Appears: Positive for: Non-toxic, No Acute Distress Head Exam: Positive for: NORMAL INSPECTION Skin: Positive for: Warm. Negative for: Cyanosis ENT: Positive for: Pharynx Is (Clear. ), Other (Swelling to the right mandibular region with swelling to the right lower gumline). Negative for: Tonsillar Exudate (No sinus swelling or tenderness. No tongue elevation. No submandibular or submental neck swelling. No pseudomembranes. ) Neck: Positive for: Normal, Supple. Negative for: Pain On Movement Of Neck ( crepitus) Neurologic/Psych: Positive for: Alert, Oriented (x3) - ECG O2 Sat by Pulse Oximetry: 97 (RA) Pulse Ox Interpretation: Normal Medical Decision Making Medical Decision Making: Time: 1254 Initial impression: Dental abscess Initial plan: --Cleocin 300 mg PO --Morphine 4 mg IM --Zofran 4 mg PO --Reevaluation Time: 1330 --Patient is medically stable for discharge and given Rx for Cleocin 300 mg and Ultram 50 mg. Advised to follow up with dentist in 1-2 days without fail. Advised to take medication as prescribed. Return to the emergency room at any time for any new or worsening symptoms. Patient states she fully agrees with and understands discharge instructions. States that she agrees with the plan and disposition. Verbalized and repeated discharge instructions and plan. I have given the patient opportunity to ask any additional questions. Scribe Attestation: Documented by Camryn Hurtado, acting as a scribe for Luz Elena Argueta PA-C Provider Scribe Attestation: All medical record entries made by the Scribe were at my direction and personally dictated by me. I have reviewed the chart and agree that the record accurately reflects my personal performance of the history, physical exam, medical decision making, and the department course for this patient. I have also personally directed, reviewed, and agree with the discharge instructions and disposition. Disposition - Clinical Impression Clinical Impression: Dental abscess - Patient ED Disposition Is Patient to be Admitted: No Counseled Patient/Family Regarding: Diagnosis, Need For Followup, Rx Given - Disposition [facility]errals: [facility] [Outside] Disposition: Routine/Home Disposition Time: 13:00 Condition: STABLE Additional Instructions: Thank you for letting us take care of you today. You were treated for toothache , dental abscess. The emergency medical care you received today was directed at your acute symptoms. If you were prescribed any medication, please fill it and take as directed. It may take several days for your symptoms to resolve. Return to the Emergency Department if your symptoms worsen, do not improve, or if you have any other problems. Please contact one of the physicians/clinics you have been referred to that are listed on the Patient Visit Information form that is included in your discharge packet. Bring any paperwork you were given at discharge with you along with any medications you are taking to your follow up visit. Our treatment cannot replace ongoing medical care by a primary care provider (PCP) outside of the emergency department. Thank you for allowing the [facility] team to be part of your care today. 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
== END 2017-11-22 13:31 | disposition home or self-care (01) ==
LOC: H.ER 12:26
DX: K04.7 Periapical abscess without sinus (principal); Z79.01 Long term (current) use of anticoagulants; Z86.73 Personal history of transient ischemic attack (TIA), and cerebral infarction without residual deficits; Z88.5 Allergy status to narcotic agent; E78.00 Pure hypercholesterolemia, unspecified; G89.29 Other chronic pain
CPT/HCPCS: 81025; 96372; 99282; J2270

== ENCOUNTER 2017-11-24 15:23 | Emergency (ER) | payer MEDICARE, OTHER ==
[2017-11-24 15:24] VITALS: BMI 34.0
[2017-11-24 15:37] VITALS: BP 152/90; PULSE 92; RESP 16; TEMP 99.3; O2SAT 98
[2017-11-24] MEDS ORDERED: Piperacillin/Tazobact 3.375 GM in Sodium Chloride 0.9% 100 ML IV STA (16:18)
[2017-11-24] MEDS ORDERED: Morphine 4 MG/ML VIAL IVP STA ×2 (16:18→19:07)
[2017-11-24] MEDS ORDERED: Piperacillin/Tazobact 3.375 gm Inj IVPB ONE (16:24)
[2017-11-24] MEDS ORDERED: Morphine 4 MG/ML VIAL ONE ×2 (16:24→22:02)
[2017-11-24] MEDS ORDERED: Piperacillin/Tazobact 3.375 GM in Dextrose 5% In Water 100 ML IV STA (16:37)
--- NOTE | 2017-11-24 16:38 | ED PDOC ---
HPI: Dental Pain/Injury Time Seen by Provider: 11/24/17 15:45 Chief Complaint (Nursing): Dental Pain Chief Complaint (Provider): Dental Pain and RIght Lower jaw swelling History Per: Patient History/Exam Limitations: no limitations Onset/Duration Of Symptoms: Days (x2 weeks) Current Symptoms Are (Timing): Still Present Quality: "Pain" Additional Complaint(s): 52 year old female presents to the emergency department to be evaluated for right sided jaw swelling which began on Saturday and dental pain x2 weeks. Patient states that she was seen here in the emergency department and prescribed clindamycin and tramadol but reports that he symptoms have only gotten worse. Patient states that the pain and swelling increased in intensity today prompting her to presents to the ED. She complains that the pain now radiates from her right jaw into her chest and back. As per patient, she has been told that she needs crowns and root canals but states that she cannot have the procedure performed due to insurance issues. [facility] Patient Left Against Medical Advice: The patient declines admission to the hospital and wishes to leave the Emergency Department. This action is against my medical advice. This decision was made with informed refusal. The patient was told that admission to the hospital is necessary. Explanation of the reasons why were discussed. The risks of leaving were explained to the patient and include, but are not limited to, worsening of known or currently unknown conditions, permanent disability and from undiagnosed or untreated conditions. The patient has the capacity to make this informed decision and understands my explanation of the current medical problem and risks of leaving. The patient voluntarily accepts these risks and signed an AMA form documenting our conversation. The patient was given the opportunity to ask questions and reconsider. The patient was encouraged to return to the Emergency Department at any time for further care. Past Medical History Reviewed: Historical Data, Nursing Documentation, Vital Signs Vital Signs: Last Vital Signs Temp 99.3 F 11/24/17 15:33 Pulse 92 H 11/24/17 15:33 Resp 16 11/24/17 15:33 BP 152/90 H 11/24/17 15:33 Pulse Ox 98 11/24/17 15:33 - Medical History PMH: Back Problems, CVA, Hypercholesterolemia, Hyperlipidemia, Migraine, Seizures, Chronic Pain (chronic back pain) Denies: Chronic Kidney Disease - Surgical History Surgical History: Denies: Appendectomy, Back Surgery Other surgeries: cranial surgery for blood clot - Family History Family History: States: Unknown Family Hx - Social History Current smoker - smoking cessation education provided: No (former) Ex-Smoker (has not smoked in the last 12 months): No Alcohol: Occasional Drugs: Denies - Immunization History Hx Tetanus Toxoid Vaccination: No Hx Influenza Vaccination: No Hx Pneumococcal Vaccination: No - Home Medications Home Medications: Ambulatory Orders Medication Instructions Recorded Diazepam [Valium] 2 mg PO BID PRN #6 tab 06/28/15 Lorazepam [Ativan] 1 tab PO DAILY 06/28/15 Oxcarbazepine [Trileptal] 1 tab PO DAILY 06/28/15 Pramipexole Dihydrochloride 1 tab PO HS 06/28/15 [Mirapex] Simvastatin [Simvastatin] 1 tab PO BID 06/28/15 Topiramate [Topamax] 1 tab AL BID 06/28/15 Tramadol HCl [Ultram] 1 tab PO BID 06/28/15 Warfarin Sodium [Coumadin] 2 tab PO DAILY 06/28/15 traMADol [Ultram] 50 mg PO ASDIR #25 tab 10/20/15 Hydrochlorothiazide 25 mg PO DAILY #30 tablet 12/19/15 traMADol [Ultram] 50 mg PO Q6H PRN #10 tab 10/27/16 Albuterol HFA [Ventolin HFA 90 1 - 2 puff IH Q4 PRN #1 inhaler 11/29/16 mcg/actuation (8 g)] Azithromycin [Zithromax] 250 mg PO DAILY #6 tab 11/29/16 guaiFENesin [guaifENESIN] 100 mg PO TID PRN #100 ml 11/29/16 Acetaminophen/Codeine 1 tab PO Q6 #8 tab 12/18/16 [Tylenol/Codeine 300 MG/30 MG] Albuterol HFA [Ventolin HFA 90 2 puff IH Q6 #200 puff 07/03/17 mcg/actuation (8 g)] Promethazine DM [Phenergan DM 5 ml PO BID #60 ml 07/03/17 Syrup] Amoxicillin 500 mg PO BID #14 tablet 10/14/17 Clindamycin [Cleocin] 300 mg PO TID #30 cap 11/22/17 traMADol [Ultram] 50 mg PO TID PRN #15 tab 11/22/17 - Allergies Allergies/Adverse Reactions: Allergies Allergy/AdvReac Type Severity Reaction Status Date / Time ciprofloxacin [From Cipro] Allergy RASH Verified 11/24/17 15:32 hydromorphone [From Dilaudid] Allergy RASH Verified 11/24/17 15:32 Review of Systems ROS Statement: Except As Marked, All Systems Reviewed And Found Negative Constitutional: Positive for: Fever (subjective) ENT: Positive for: Other (right lower jaw swelling; Dental Pain) Physical Exam - Reviewed Nursing Documentation Reviewed: Yes Vital Signs Reviewed: Yes - Physical Exam Appears: Positive for: Uncomfortable, In Acute Distress (moderate painful) Head Exam: Positive for: ATRAUMATIC, NORMOCEPHALIC Skin: Positive for: Warm, Dry Eye Exam: Positive for: EOMI, PERRL ENT: Positive for: Other (Large swelling to right anterior mandible with erythema to chin and exquisite tenderness to palpation and mild trismus; Slightly muffled voice;right lower canine with large caries and tenderness on palpation . ) Neck: Positive for: Painless ROM, Supple Cardiovascular/Chest: Positive for: Regular Rate, Rhythm. Negative for: Murmur Respiratory: Positive for: Normal Breath Sounds. Negative for: Respiratory Distress Gastrointestinal/Abdominal: Positive for: Soft. Negative for: Tenderness Back: Positive for: Normal Inspection. Negative for: Muscle Spasm Extremity: Positive for: Normal ROM. Negative for: Deformity Lymphatic: Negative for: Adenopathy Neurologic/Psych: Positive for: Alert. Negative for: Motor/Sensory Deficits - Laboratory Results Result Diagrams: 11/24/17 16:44 11/24/17 16:44 - ECG O2 Sat by Pulse Oximetry: 98 (RA) Pulse Ox Interpretation: Normal - Critical Care Total Time (In Min): 30 Documented Critical Care: Time excludes all time spent performint seperately billable procedures Medical Decision Making Medical Decision Makin Initial Impression 52 y/o female presenting with abscess dental vs. christina angina Differentials: Sepsis, Osteomyelitis, Cellulitis Initial Plan: * VBG * CT Neck Soft Tissue * CMP * Drug Screen * Upreg * Udip * CBC * Partial Thromboplastin * Prothrombin Time * Morphine 4mg IVP * Toradol 15mg IVP * Zosyn 3.375gm NS 100ml IV * Blood Culture * Reevaluation 1906 EXAM: CT Neck With Intravenous Contrast EXAM DATE/TIME: 11/24/2017 4:17 PM CLINICAL HISTORY: 52 years old, female; Pain; Painful swallowing; Additional info: Right lower mandible abscess R/O ludwigs v dental TECHNIQUE: Axial computed tomography images of the neck with intravenous contrast. All CT scans at this facility use one or more dose reduction techniques, viz.: automated exposure control; ma/kV adjustment per patient size (including targeted exams where dose is matched to indication; i.e. head); or iterative reconstruction technique. CONTRAST: 95 mL of [id number] administered intravenously. COMPARISON: No relevant prior studies available. FINDINGS: Nasopharynx: Unremarkable. Oropharynx: Apparent edema in the base of the tongue, posterior tongue and the posterior aspects of the right and left digastric muscles most concerning for lugwig's angina. There is edema and effacement of the planes adjacent the floor of mouth musculature. 0.9 x 0.6 cm abscess abutting a periapical cyst of the right mandibular cuspid. No significant oropharyngeal or hypopharyngeal airway compromise. No significant tonsillar enlargement. Hypopharynx: See above. Larynx: Unremarkable. Normal epiglottis. Trachea: Unremarkable. Retropharyngeal space: Unremarkable. Submandibular/parotid glands: Unremarkable. Glands are normal in size. Thyroid: Unremarkable. No enlarged or calcified nodules. Bones/joints: No acute fracture. Soft tissues: Odontogenic cellulitis or facial soft tissues overlying the right mandible. Vasculature: No acute findings. Lymph nodes: Unremarkable. No lymphadenopathy. Lung apices: See above. IMPRESSION: 1. Apparent edema in the base of the tongue, posterior tongue and the posterior aspects of the right and left digastric muscles most concerning for lugwig's angina. Please also correlate clinically for potential oral cavity narrowing. 2. There is edema and effacement of the planes adjacent the floor of mouth musculature. 0.9 x 0.6 cm abscess abutting a periapical cyst of the right mandibular cuspid. 3. Odontogenic cellulitis in the superficial soft tissues overlying the right mandible. MARCELINA pt findings and need for possible transfer for emergent OMFS management. MARCELINA [facility] transfer center for OMFS treatment. Will call back. Pt requesting to go home first to walk her dog prior to transfer. Reports that there is no one available to walk her dog. MARCELINA pt dangers of diagnosis, specifically extension of edema causing airway obstruction and therefore , and pt says she wants to leave anyway and come right back after walking dog. Understands risks and wants to leave and come back anyway. Pt is oriented x 3 and demonstrates ability to understand risks. AMA signed. 8p [facility] called back with Dr Dorsey [facility] resident. MARCELINA Dorsey clinical presentation and findings at length. Will call back after he discusses with his chief resident. (See further discussion with [facility] in note when patient returned from [facility]) Documented by Desiree Francis acting as a scribe for Rut Carvajal MD. All medical record entries made by the Scribe were at my direction and personally dictated by me. I have reviewed the chart and agree that the record accurately reflects my personal performance of the history, physical exam, medical decision making, and the department course for this patient. I have also personally directed, reviewed, and agree with the discharge instructions and disposition. Disposition - Clinical Impression Clinical Impression: Dental abscess, Ludwigs angina Counseled Patient/Family Regarding: Studies Performed, Diagnosis - Disposition Disposition: Against Medical Advice Disposition Time: 20:00 Condition: UNKNOWN Additional Instructions: RETURN TO ER IMMEDIATELY Instructions: Leaving Against Medical Advice Forms: [employer] (Macedonian)
[2017-11-24 16:48] LABS: BASO # 0.1 K/uL (0.0-0.2); EOS # 0.1 K/uL (0.0-0.7); EOS % 0.9 % (0.0-4.0); HEMOGLOBIN 11.4 g/dL (12.0-16.0); LYMPH # 1.8 K/uL (1.0-4.3); LYMPH % 24.1 % (20.0-40.0); MEAN CELL VOLUME 89.1 fl (81.0-99.0); MEAN CORPUSCULAR HEMOGLOBIN 29.6 pg (27.0-31.0); MEAN CORPUSCULAR HGB CONC 33.3 g/dL (33.0-37.0); MEAN PLATELET VOLUME 8.1 fl (7.2-11.7); MONO # 0.6 K/uL (0.0-0.8); MONO % 8.1 % (0.0-10.0); NEUT # 4.8 K/uL (1.8-7.0); NEUT % 65.9 % (50.0-75.0); NRBC % 0.3 % (0.0-0.0); RBC 3.84 Mil/uL (3.80-5.20); RED CELL DISTRIBUTION WIDTH 14.7 % (11.5-14.5); WHITE BLOOD COUNT 7.3 K/uL (4.8-10.8)
[2017-11-24 16:57] LABS: VENOUS BLOOD GAS PCO2 42 mmHg (40-60); VENOUS BLOOD GAS PO2 39 mm/Hg (30-55); VENOUS BLOOD PH 7.34 (7.32-7.43)
[2017-11-24 17:10] LABS: ALB/GLOB RATIO 1.2 (1.0-2.1); ALBUMIN 4.2 g/dL (3.5-5.0); ALT/SGPT 78 U/L (9-52); AST/SGOT 49 U/L (14-36); BLOOD UREA NITROGEN 12 mg/dl (7-17); CALCIUM 9.3 mg/dL (8.4-10.2); GFR AFRICAN-AMERICAN > 60; GFR NON-AFRICAN AMERICAN > 60
[2017-11-24] MEDS ORDERED: Iohexol 300 100 ML IJ ONE (17:44)
[2017-11-24] MEDS ORDERED: Sodium Chloride 0.9% 100 ML ONE (17:44)
[2017-11-24 17:52] LABS: BARBITURATES, UR NEGATIVE (NEGATIVE); BENZODIAZEPINES, UR NEGATIVE (NEGATIVE); OPIATES, UR POSITIVE (NEGATIVE); PHENCYCLIDINE, UR NEGATIVE (NEGATIVE)
[2017-11-24 18:09] LABS: INR 1.6 (0.9-1.2); PARTIAL THROMBOPLASTIN TIME 34.1 Seconds (25.6-37.1); PROTHROMBIN TIME 18.4 Seconds (9.8-13.1)
[2017-11-24 18:09] LABS: SQUAMOUS EPITHIAL 5 /hpf (0-5); URINE BACTERIA MOD (<OCC); URINE BILIRUBIN NEGATIVE (NEGATIVE); URINE BLOOD NEGATIVE (NEGATIVE); URINE CLARITY CLOUDY (Clear); URINE COLOR YELLOW (YELLOW); URINE GLUCOSE (UA) NEG (Normal); URINE LEUKOCYTE ESTERASE NEG Leu/uL (Negative); URINE PROTEIN NEGATIVE (NEGATIVE); URINE UROBILINOGEN 0.2-1.0 mg/dL (0.2-1.0)
--- NOTE | 2017-11-24 21:12 | CT ---
EXAM: CT Neck With Intravenous Contrast EXAM DATE/TIME: 11/24/2017 4:17 PM CLINICAL HISTORY: 52 years old, female; Pain; Painful swallowing; Additional info: Right lower mandible abscess R/O ludwigs v dental TECHNIQUE: Axial computed tomography images of the neck with intravenous contrast. All CT scans at this facility use one or more dose reduction techniques, viz.: automated exposure control; ma/kV adjustment per patient size (including targeted exams where dose is matched to indication; ie. head); or iterative reconstruction technique. Coronal and sagittal reformatted images were created and reviewed. CONTRAST: 95 mL of [id number] administered intravenously. COMPARISON: No relevant prior studies available. FINDINGS: NASOPHARYNX: No acute abnormality of the nasopharyngeal/adenoidal tonsils identified. OROPHARYNX: No acute abnormality of the palatine tonsils identified. No evidence of peritonsillar abscess. No acute abnormality of the tongue base identified. HYPOPHARYNX: No acute abnormality of the pyriform sinuses visualized. LARYNX: No acute abnormality of the epiglottis identified. No acute abnormality of the vocal cords identified. TRACHEA: Visualized portions of the trachea appear patent. RETROPHARYNGEAL SPACE: No evidence of prevertebral/retropharyngeal fluid or fluid collection. SUBMANDIBULAR/PAROTID GLANDS: No acute abnormality of the submandibular or parotid glands identified. THYROID: No acute abnormality of the thyroid gland identified. BONES/JOINTS: Chronic post operative changes involving the left temporal bone. SOFT TISSUES: Findings highly suspicious for an abscess in the deep right anterior perimandibular soft tissues. Best seen on image 35 of series 2, there is a 1.4 x 7.0 x 1.4 cm masslike, low density area with round anterior margins and a thin, enhancing soft tissue rim, suspicious for an abscess. This is located in the deep right facial soft tissues, directly abutting the right anterior mandible. There is nearby diffuse right facial soft tissue swelling and subcutaneous fat infiltration, highly suspicious for cellulitis. No evidence of soft tissue gas. VASCULATURE: Left internal carotid artery is diffusely small in size. No definite occlusion. LYMPH NODES: Mild lymphadenopathy in the right neck and face, involving the submandibular and jugulodigastric chain regions. The largest lymph node, located in the submandibular region, measures 2.4 x 1.3 cm. This is most likely reactive in etiology. No evidence of diffuse pathologic lymphadenopathy. DENTAL: Findings highly suspicious for a periodontal abscess involving the right lower canine tooth, image 41/series 602. This abuts the suspected deep soft tissue abscess. ESOPHAGUS: No acute abnormality of the upper esophagus identified. LUNG APICES: Lung apices appear clear. IMPRESSION: - Findings highly suspicious for a 1.4 cm abscess in the deep right facial soft tissues, directly abutting the right anterior mandible, associated with diffuse right facial cellulitis. This is most likely related to a periodontal abscess involving the lower right canine tooth. - Diffusely small size of the left internal carotid artery. This could be on a congenital basis. Recommend further evaluation with carotid ultrasound, CT angiogram or MR angiogram. - See above for remaining findings.
== END 2017-11-24 19:44 | disposition left against medical advice (07) ==
LOC: H.ER 15:23
DX: K04.7 Periapical abscess without sinus (principal); K12.2 Cellulitis and abscess of mouth; E78.00 Pure hypercholesterolemia, unspecified; Z86.73 Personal history of transient ischemic attack (TIA), and cerebral infarction without residual deficits; Z79.01 Long term (current) use of anticoagulants; Z88.5 Allergy status to narcotic agent; G89.29 Other chronic pain
CPT/HCPCS: 70491; 80053; 81003; 82803; 85025; 85610; 85730; 87040; 96365; 96375; 99284; G0480; J1885; J2270; J2543; Q9967

== ENCOUNTER 2017-11-24 20:32 | Emergency (ER) | payer MEDICARE, OTHER ==
[2017-11-24 20:32] VITALS: BMI 34.0
[2017-11-24 21:17] VITALS: TEMP 99.3
[2017-11-24] MEDS ORDERED: Sodium Chloride 0.9% 1,000 ML IV STA (21:18)
--- NOTE | 2017-11-24 21:36 | ED PDOC ---
HPI: Dental Pain/Injury Time Seen by Provider: 11/24/17 20:45 Chief Complaint (Nursing): Dental Pain Chief Complaint (Provider): RIGHT jaw swelling History Per: Patient History/Exam Limitations: no limitations Onset/Duration Of Symptoms: Days (3), Gradual, Persistent, Worse Since Current Symptoms Are (Timing): Constant Quality: "Pain" Additional Complaint(s): Seen in ER earlier today and diagnosed with dental abscess with edema of soft tissue floor of mouth. Setup for transfer but wanted to leave to walk dog and has come back. Denies any change in symptoms No food at all today. Has not drunk anything since 9am. Has been unable to eat due to pain. Drank coffee at 9am. PMD Dr Staley Past Medical History Reviewed: Historical Data, Nursing Documentation, Vital Signs Vital Signs: Last Vital Signs Temp 99.3 F 11/24/17 21:12 Pulse 83 11/24/17 21:12 Resp 16 11/24/17 21:12 BP 148/81 11/24/17 21:12 Pulse Ox 96 11/24/17 21:12 - Medical History PMH: Back Problems, CVA, Hypercholesterolemia, Hyperlipidemia, Migraine, Seizures, Chronic Pain (chronic back pain) Denies: Chronic Kidney Disease - Surgical History Surgical History: Denies: Appendectomy, Back Surgery - Family History Family History: States: Unknown Family Hx - Social History Current smoker - smoking cessation education provided: No - Immunization History Hx Tetanus Toxoid Vaccination: No Hx Influenza Vaccination: No Hx Pneumococcal Vaccination: No - Home Medications Home Medications: Ambulatory Orders Medication Instructions Recorded Diazepam [Valium] 2 mg PO BID PRN #6 tab 06/28/15 Lorazepam [Ativan] 1 tab PO DAILY 06/28/15 Oxcarbazepine [Trileptal] 1 tab PO DAILY 06/28/15 Pramipexole Dihydrochloride 1 tab PO HS 06/28/15 [Mirapex] Simvastatin [Simvastatin] 1 tab PO BID 06/28/15 Topiramate [Topamax] 1 tab NM BID 06/28/15 Tramadol HCl [Ultram] 1 tab PO BID 06/28/15 Warfarin Sodium [Coumadin] 2 tab PO DAILY 06/28/15 traMADol [Ultram] 50 mg PO ASDIR #25 tab 10/20/15 Hydrochlorothiazide 25 mg PO DAILY #30 tablet 12/19/15 traMADol [Ultram] 50 mg PO Q6H PRN #10 tab 10/27/16 Albuterol HFA [Ventolin HFA 90 1 - 2 puff IH Q4 PRN #1 inhaler 11/29/16 mcg/actuation (8 g)] Azithromycin [Zithromax] 250 mg PO DAILY #6 tab 11/29/16 guaiFENesin [guaifENESIN] 100 mg PO TID PRN #100 ml 11/29/16 Acetaminophen/Codeine 1 tab PO Q6 #8 tab 12/18/16 [Tylenol/Codeine 300 MG/30 MG] Albuterol HFA [Ventolin HFA 90 2 puff IH Q6 #200 puff 07/03/17 mcg/actuation (8 g)] Promethazine DM [Phenergan DM 5 ml PO BID #60 ml 07/03/17 Syrup] Amoxicillin 500 mg PO BID #14 tablet 10/14/17 Clindamycin [Cleocin] 300 mg PO TID #30 cap 11/22/17 traMADol [Ultram] 50 mg PO TID PRN #15 tab 11/22/17 - Allergies Allergies/Adverse Reactions: Allergies Allergy/AdvReac Type Severity Reaction Status Date / Time ciprofloxacin [From Cipro] Allergy RASH Verified 11/24/17 15:32 hydromorphone [From Dilaudid] Allergy RASH Verified 11/24/17 15:32 Review of Systems ROS Statement: Except As Marked, All Systems Reviewed And Found Negative (and as per HPI) Constitutional: Positive for: Fever, Chills Physical Exam - Reviewed Nursing Documentation Reviewed: Yes Vital Signs Reviewed: Yes - Physical Exam Appears: Positive for: Non-toxic, In Acute Distress Head Exam: Positive for: ATRAUMATIC, NORMOCEPHALIC Skin: Positive for: Warm, Dry Eye Exam: Positive for: EOMI, PERRL ENT: Positive for: Other (ENT: Positive for: Other (Large swelling to right anterior mandible with erythema to chin and exquisite tenderness to palpation and mild trismus;Slightly muffled voice;right lower canine with large caries and tenderness on palpation . )) Neck: Positive for: Painless ROM, Supple Cardiovascular/Chest: Positive for: Regular Rate, Rhythm. Negative for: Murmur Respiratory: Positive for: Normal Breath Sounds. Negative for: Wheezing Gastrointestinal/Abdominal: Positive for: Soft. Negative for: Tenderness Back: Positive for: Normal Inspection. Negative for: Muscle Spasm Extremity: Positive for: Normal ROM. Negative for: Deformity Neurologic/Psych: Positive for: Alert. Negative for: Motor/Sensory Deficits - ECG O2 Sat by Pulse Oximetry: 96 Medical Decision Making Medical Decision Making: IVF order MARCELINA Daily Chief resident OMFS and Dr Guillaume OMFS attending at [facility]. Accepted for transfer. Also MARCELINA [facility] attending. MARCELINA pt and family plan of care. Disposition - Clinical Impression Clinical Impression: Dental abscess Counseled Patient/Family Regarding: Studies Performed, Diagnosis - Disposition Disposition: Other Institution Disposition Time: 21:00 Condition: GUARDED
[2017-11-24] MEDS ORDERED: Morphine 4 MG/ML VIAL IVP STA (21:59)
[2017-11-24 22:12] VITALS: BP 147/75; PULSE 84; RESP 18; O2SAT 99
== END 2017-11-24 22:19 | disposition short-term general hospital (02) ==
LOC: H.ER 20:32
DX: K04.7 Periapical abscess without sinus (principal); Z79.01 Long term (current) use of anticoagulants; Z88.5 Allergy status to narcotic agent; E78.00 Pure hypercholesterolemia, unspecified; G89.29 Other chronic pain; Z86.73 Personal history of transient ischemic attack (TIA), and cerebral infarction without residual deficits
CPT/HCPCS: 96374; 99282; J2270; J7040

== ENCOUNTER 2017-12-10 12:15 | Emergency (ER) | payer MEDICARE, OTHER ==
[2017-12-10 12:16] VITALS: BMI 34.0
[2017-12-10 12:38] VITALS: O2SAT 98
[2017-12-10] MEDS ORDERED: Sodium Chloride 0.9% 1,000 ML IV SCH (12:45)
--- NOTE | 2017-12-10 13:09 | CT ---
PROCEDURE: CT HEAD WITHOUT CONTRAST. HISTORY: facial numbness COMPARISON: Unenhanced head CT examinations 07/31/2011 and 07/27/2007. TECHNIQUE: Axial computed tomography images were obtained through the head/brain without intravenous contrast. Radiation dose: Total exam DLP = 762.80 mGy-cm. This CT exam was performed using one or more of the following dose reduction techniques: Automated exposure control, adjustment of the mA and/or kV according to patient size, and/or use of iterative reconstruction technique. FINDINGS: HEMORRHAGE: No intracranial hemorrhage. BRAIN: No definite acute or subacute intracranial findings are appreciable by standard CT criteria. Patient status post left frontotemporal craniotomy apparently for prior neuro surgical procedure earlier than prior CT 07/27/2007 with stable appearing prominent cystic encephalomalacia appreciated once again at the left frontotemporal distribution. No positive mass effect is appreciated throughout the posterior fossa contents unremarkable. Right cerebral hemispheres unremarkable. Volume loss of the left cerebral hemisphere is appreciate with limited expansion of the ventricular sulcal and cisternal spaces including ex vacuo expansion of left lateral ventricle. No hydrocephalus throughout. No cortical edema is appreciated throughout the exam with follow-up MRI available there is no contraindication for greater detailed soft tissue resolution. VENTRICLES: As above. CALVARIUM: Other in craniotomy noted above, no additional findings throughout the calvarium including the skullbase. PARANASAL SINUSES: Unremarkable as visualized. No significant inflammatory changes. MASTOID AIR CELLS: Unremarkable as visualized. No inflammatory changes. OTHER FINDINGS: None. IMPRESSION: Stable unenhanced head CT including left frontotemporal cystic encephalomalacia in this patient with prior infarct in the past as well as left frontotemporal craniotomy. No intracranial hemorrhage or positive mass effect throughout. No definite cortical edema. Follow-up MRI is available for further clinical characterization if clinically warranted. Findings discussed with Dr. Montes 12/10/2017 with written down and read back verification 1:01 p.m..
[2017-12-10 13:22] LABS: BASO % 0.6 % (0.0-2.0); EOS # 0.1 K/uL (0.0-0.7); EOS % 0.8 % (0.0-4.0); HEMOGLOBIN 12.8 g/dL (12.0-16.0); LYMPH # 1.7 K/uL (1.0-4.3); LYMPH % 25.2 % (20.0-40.0); MEAN CELL VOLUME 87.2 fl (81.0-99.0); MEAN CORPUSCULAR HEMOGLOBIN 29.3 pg (27.0-31.0); MEAN CORPUSCULAR HGB CONC 33.6 g/dL (33.0-37.0); MEAN PLATELET VOLUME 7.8 fl (7.2-11.7); MONO # 0.3 K/uL (0.0-0.8); MONO % 4.9 % (0.0-10.0); NEUT # 4.6 K/uL (1.8-7.0); NEUT % 68.5 % (50.0-75.0); NRBC % 0.1 % (0.0-0.0); RBC 4.37 Mil/uL (3.80-5.20); WHITE BLOOD COUNT 6.7 K/uL (4.8-10.8)
[2017-12-10 13:32] LABS: INR 1.1 (0.9-1.2); PARTIAL THROMBOPLASTIN TIME 30.1 Seconds (25.6-37.1)
--- NOTE | 2017-12-10 13:32 | ED PDOC ---
HPI:STROKE - Historian Historian: Patient - Chief Complaint Chief Complaint: Numbness - Onset Date: 12/09/17 Time: 15:00 - Location Locate right:: Face, Upper extremity, Lower extremity - Notes: Notes:: Pt reports generalized FULLER typical of her usual migraine X 2 days, prescribed Topamax by Dr. Coronado without relief. Pt reports numbness to R face/arm/leg since 3 PM yesterday, resolving and evolving into tingling now. Pt had CVA 24 years ago after which vein from leg was attempted to be implanted into brain but "did not take". Has had same numbness on R side in past, last episode 6 years ago. Denies visual changes, weakness, trauma, fever, neck stiffness. NIHSS Stroke Scale - Date/Time Evaluation Performed Date Performed: 12/10/17 Time Performed: 13:00 When Was NIHSS Performed: Code Stroke - How Severe is the Stroke Level of Consciousness: 0=Alert LOC to Questions: 0=Both comments correct LOC to commands: 0=Obeys both correctly Best Gaze: 0=Normal Visual: 0=No visual loss Facial: 0=Normal Motor Arm - Left: 0=No drift Motor Arm - Right: 0=No drift Motor Leg - Left: 0=No drift Motor Leg - Right: 0=No drift Limb Ataxia: 0=Absent Sensory: 0=Normal Best Language: 0=No aphasia Dysarthia: 0=Normal articulation Extinction & Inattention (Neglect): 0=Normal, no object Score: 0 rTPA Inclusion/Exclusion - Refusal of Treatment Patient Refused Treatment: No - Inclusion Criteria for Altepase Patient is 18 years or Older: Yes The Clinical Diagnosis of Ischemic Stroke That is Causing a Potentially Disabling Neurological Deficit: No Time of Onset is Well Established to be Less Than 270 Minute Before Treatment Would Begin: No Risk/Benefit Discussed With Patient/Family Member Present: No Past Medical History Reviewed: Nursing Documentation, Vital Signs Vital Signs: Last Vital Signs Temp 99.5 F 12/10/17 12:31 Pulse 98 H 12/10/17 12:31 Resp 16 12/10/17 12:31 BP 124/82 12/10/17 12:31 Pulse Ox 98 12/10/17 12:31 - Medical History PMH: Back Problems, CVA, Hypercholesterolemia, Hyperlipidemia, Migraine, Seizures, Chronic Pain (chronic back pain) Denies: Chronic Kidney Disease - Surgical History Surgical History: Denies: Appendectomy, Back Surgery - Family History Family History: States: Unknown Family Hx - Immunization History Hx Tetanus Toxoid Vaccination: No Hx Influenza Vaccination: No Hx Pneumococcal Vaccination: No - Home Medications Home Medications: Ambulatory Orders Medication Instructions Recorded Cyclobenzaprine [Flexeril] 10 mg PO HS 12/10/17 Furosemide [Lasix] 40 mg PO DAILY 12/10/17 Gabapentin [Neurontin] 300 mg PO HS 12/10/17 LORazepam [Ativan] 1 mg PO Q12 PRN 12/10/17 OXcarbazepine [Trileptal] 300 mg PO DAILY 12/10/17 OXcarbazepine [Trileptal] 750 mg PO HS 12/10/17 Cascade-3/Dha/Epa/Fish Oil [Fish Oil 500 mg PO DAILY 12/10/17 500 mg Softgel] Pantoprazole Sodium [Protonix] 40 mg PO DAILY 12/10/17 Pramipexole [Mirapex] 0.5 mg PO DAILY 12/10/17 Pramipexole [Mirapex] 1 mg PO HS 12/10/17 Simvastatin [Zocor] 40 mg PO HS 12/10/17 Topiramate [Topamax] 50 mg PO Q12 12/10/17 Warfarin [Coumadin] 4 mg PO DAILY 12/10/17 traMADol [Ultram] 50 mg PO Q8 PRN 12/10/17 - Allergies Allergies/Adverse Reactions: Allergies Allergy/AdvReac Type Severity Reaction Status Date / Time ciprofloxacin [From Cipro] Allergy RASH Verified 11/24/17 15:32 hydromorphone [From Dilaudid] Allergy RASH Verified 11/24/17 15:32 Review of Systems Constitutional: Negative for: Fever, Chills Eyes: Negative for: Vision Change Cardiovascular: Negative for: Chest Pain, Palpitations Respiratory: Negative for: Cough, Shortness of Breath Gastrointestinal: Negative for: Nausea, Vomiting, Abdominal Pain, Diarrhea Musculoskeletal: Negative for: Neck Pain, Back Pain Skin: Negative for: Rash, Lesions Neurological: Positive for: Numbness, Headache, Dizziness. Negative for: Weakness, Incoordination, Change in Speech, Confusion, Seizures, Altered Mental Status Physical Exam - Reviewed Nursing Documentation Reviewed: Yes Vital Signs Reviewed: Yes - Physical Exam Appears: Positive for: Well, No Acute Distress Head Exam: Positive for: ATRAUMATIC, NORMAL INSPECTION Skin: Positive for: Normal Color, Warm, Dry Eye Exam: Positive for: Normal appearance, EOMI, PERRL Neck: Positive for: Normal, Painless ROM, Supple Cardiovascular/Chest: Positive for: Regular Rate, Rhythm Respiratory: Positive for: Normal Breath Sounds Gastrointestinal/Abdominal: Positive for: Normal Exam Back: Positive for: Normal Inspection Extremity: Positive for: Normal ROM. Negative for: Swelling Neurologic/Psych: Positive for: Alert, hairspring ii inspector II-XII, Oriented. Negative for: Motor/Sensory Deficits, Aphasia, Facial Droop - Laboratory Results Result Diagrams: 12/10/17 13:05 12/10/17 13:05 - ECG O2 Sat by Pulse Oximetry: 98 Pulse Ox Interpretation: Normal - Progress Re-evaluation Time: 17:49 Condition: Improved - Physician Consult Information Time Consulting Physican Contacted: 15:34 Physician Contacted: Redd Coronado Outcome Of Conversation: Case discussed, recommends Depakene 500 mg IVPB over 60 minutes, Solumedrol 250 mg IVP, Benadryl 50 mg, Zofran 4 mg and Toradol 15 mg IV. If FULLER resolved, can be discharged home. Medical Decision Making Medical Decision Makin yo female with resolving R sided numbness. - Code stroke (called by security systems technician) - labs - EKG - CXR - CT head 18:45 FULLER resolved. Disposition - Clinical Impression Clinical Impression: Migraine - Disposition Referrals: Redd Coronado MD [Staff Provider] - Disposition: Routine/Home Disposition Time: 18:34 Condition: IMPROVED Instructions: Migraine Headaches in Adults Forms: [employer] (Tristanian)
[2017-12-10 13:38] LABS: ALB/GLOB RATIO 1.3 (1.0-2.1); ALBUMIN 4.4 g/dL (3.5-5.0); ALT/SGPT 92 U/L (9-52); AST/SGOT 65 U/L (14-36); BLOOD UREA NITROGEN 13 mg/dl (7-17); CALCIUM 9.6 mg/dL (8.4-10.2); GFR AFRICAN-AMERICAN > 60; GFR NON-AFRICAN AMERICAN > 60; HDL CHOLESTEROL 45 MG/DL (30-70)
[2017-12-10 13:46] LABS: LDL CHOLESTEROL 153 mg/dL (0-129)
--- NOTE | 2017-12-10 13:51 | RAD ---
HISTORY: Code Stroke COMPARISON: 11/12/2017. FINDINGS: LUNGS: No active pulmonary disease. PLEURA: No significant pleural effusion identified, no pneumothorax apparent. CARDIOVASCULAR: Normal. OSSEOUS STRUCTURES: No significant abnormalities. VISUALIZED UPPER ABDOMEN: Normal. OTHER FINDINGS: None. IMPRESSION: No active disease. No significant interval change compared to the prior examination(s).
[2017-12-10] MEDS ORDERED: DiphenhydrAMINE 50 mg/ml Inj IVP STA (15:41)
[2017-12-10] MEDS ORDERED: Valproate 500 MG in Sodium Chloride 0.9% 100 ML IVPB STA (15:50)
[2017-12-10] MEDS ORDERED: DiphenhydrAMINE 50 mg/ml Inj ONE (16:07)
[2017-12-10 16:20] VITALS: RESP 18
[2017-12-10 18:05] VITALS: BP 136/82; PULSE 91; TEMP 98.5
--- NOTE | 2017-12-11 09:19 | CARD ---
APPROVED REPORT EKG Measurement Heart [id number] <Conclusion> Normal sinus rhythm Normal ECG
== END 2017-12-10 18:50 | disposition home or self-care (01) ==
LOC: H.ER 12:15
DX: G43.909 Migraine, unspecified, not intractable, without status migrainosus (principal); G93.89 Other specified disorders of brain; Z86.73 Personal history of transient ischemic attack (TIA), and cerebral infarction without residual deficits; Z88.5 Allergy status to narcotic agent; G89.29 Other chronic pain; Z79.01 Long term (current) use of anticoagulants; E78.00 Pure hypercholesterolemia, unspecified
CPT/HCPCS: 70450; 71045; 80053; 80061; 82948; 83036; 84484; 85025; 85610; 85730; 86850; 86900; 93005; 96365; 96375; 99285; J1200; J1885; J2405; J2930; J7040

== ENCOUNTER 2018-05-31 15:18 | Emergency (ER) | payer MEDICARE, OTHER ==
[2018-05-31 15:18] VITALS: BMI 34.0
[2018-05-31 15:32] VITALS: TEMP 98.6
[2018-05-31] MEDS ORDERED: Albuterol-Ipratrop 3 mg / 0.5 (3 ml) UD IH STA (15:47)
--- NOTE | 2018-05-31 15:52 | ED PDOC ---
History of Present Illness History of Present Illness: 53 y/o male with a PMHx of Asthma presents to the ED for evaluation of cough, productive white sputum and congestion associated with left sided back pain, onset 2 days ago. Denies fever and shortness of breath. PMD: None Provided HPI: Influenza Time Seen by Provider: 05/31/18 15:39 Chief Complaint: Cough, Cold, Congestion Chief Complaint (Provider): Cough, Cold, Congestion History Per: Patient Exam Limitations: no limitations Symptoms include: cough, nasal congestion. denies: fever Past Medical History Reviewed: Historical Data, Nursing Documentation, Vital Signs Vital Signs: Last Vital Signs Temp 98.6 F 05/31/18 15:30 Pulse 70 05/31/18 15:30 Resp 18 05/31/18 15:30 BP 161/116 H 05/31/18 15:30 Pulse Ox 99 05/31/18 15:30 - Medical History PMH: Asthma, Back Problems, CVA, Hypercholesterolemia, Hyperlipidemia, Migraine, Seizures, Chronic Pain (chronic back pain) Denies: Chronic Kidney Disease - Surgical History Surgical History: No Surg Hx Denies: Appendectomy, Back Surgery - Family History Family History: States: Unknown Family Hx - Immunization History Hx Tetanus Toxoid Vaccination: No Hx Influenza Vaccination: No Hx Pneumococcal Vaccination: No - Home Medications Home Medications: Ambulatory Orders Medication Instructions Recorded Cyclobenzaprine [Flexeril] 10 mg PO HS 12/10/17 Furosemide [Lasix] 40 mg PO DAILY 12/10/17 Gabapentin [Neurontin] 600 mg PO HS 12/10/17 LORazepam [Ativan] 1 mg PO Q12 PRN 12/10/17 OXcarbazepine [Trileptal] 300 mg PO QAM 12/10/17 Pantoprazole Sodium [Protonix] 40 mg PO DAILY 12/10/17 Pramipexole [Mirapex] 0.25 mg PO DAILY 12/10/17 Simvastatin [Zocor] 40 mg PO HS 12/10/17 Topiramate [Topamax] 50 mg PO Q12 12/10/17 Warfarin [Coumadin] 4 mg PO DAILY 12/10/17 traMADol [Ultram] 50 mg PO Q8 PRN 12/10/17 Azithromycin [Zithromax] 250 mg PO DAILY #6 tab 05/31/18 OXcarbazepine [Trileptal] 750 mg PO QPM 05/31/18 Prednisone 50 mg PO DAILY #5 tab 05/31/18 traMADol [Ultram] 50 mg PO Q8 #10 tab 05/31/18 - Allergies Allergies/Adverse Reactions: Allergies Allergy/AdvReac Type Severity Reaction Status Date / Time ciprofloxacin [From Cipro] Allergy RASH Verified 05/31/18 15:30 hydromorphone [From Dilaudid] Allergy RASH Verified 05/31/18 15:30 Review of Systems ROS Statement: Except As Marked, All Systems Reviewed And Found Negative Constitutional: Negative for: Fever ENT: Positive for: Nose Congestion Respiratory: Positive for: Cough. Negative for: Shortness of Breath Musculoskeletal: Positive for: Back Pain Physical Exam - Reviewed Nursing Documentation Reviewed: Yes Vital Signs Reviewed: Yes - Physical Exam Appears: Positive for: Non-toxic, No Acute Distress Head Exam: Positive for: ATRAUMATIC, NORMOCEPHALIC Skin: Positive for: Normal Color, Warm, Dry Eye Exam: Positive for: Normal appearance, EOMI, PERRL Neck: Positive for: Normal, Painless ROM Cardiovascular/Chest: Positive for: Regular Rate, Rhythm. Negative for: Murmur Respiratory: Positive for: Decreased Breath Sounds, Rhonchi (scattered). Negative for: Accessory Muscle Use, Wheezing, Respiratory Distress Gastrointestinal/Abdominal: Positive for: Normal Exam, Soft, Tenderness (Tenderness to the left posterior lower ribs. Otherwise no abdominal tenderness. ) Extremity: Positive for: Normal ROM. Negative for: Tenderness, Deformity, Swelling Neurologic/Psych: Positive for: Alert, Oriented. Negative for: Motor/Sensory Deficits Medical Decision Making Medical Decision Making: Time: 154 Plan: -- CMP -- CBC with differentials -- CXR Two Views -- Duoneb 3 mg/0.5 mg UD 3 ml INH -- SOLU-Medrol 125 mg IVP -- Toradol 30 mg IVP -- Peak Flow Pre/Post Tx Scribe Attestation: Documented by Cole Bang acting as a scribe for Hussain Bruno MD. Provider Scribe Attestation: All medical record entries made by the Scribe were at my direction and personally dictated by me. I have reviewed the chart and agree that the record accurately reflects my personal performance of the history, physical exam, medical decision making, and the department course for this patient. I have also personally directed, reviewed, and agree with the discharge instructions and disposition. - Laboratory Results Result Diagrams: 05/31/18 16:26 05/31/18 16:26 - ECG O2 Sat by Pulse Oximetry: 99 Disposition - Clinical Impression Clinical Impression: Pneumonia - Patient ED Disposition Is Patient to be Admitted: No Counseled Patient/Family Regarding: Studies Performed, Diagnosis, Need For Followup, Rx Given - Disposition Referrals: Escobar Rich MD [Staff Provider] - Disposition: Routine/Home Disposition Time: 17:38 Condition: FAIR Prescriptions: Azithromycin [Zithromax] 250 mg PO DAILY #6 tab Prednisone 50 mg PO DAILY #5 tab traMADol [Ultram] 50 mg PO Q8 #10 tab Instructions: Pneumonia in Adults Forms: [facility] (Bengali)
--- NOTE | 2018-05-31 16:16 | RAD ---
Date of service: 05/31/2018 HISTORY: cough COMPARISON: Chest radiograph dated 12/10/2017. TECHNIQUE: Chest PA and lateral FINDINGS: LUNGS: Low lung volumes. Questionable left basilar infiltrate versus atelectasis. PLEURA: No significant pleural effusion identified. No pneumothorax apparent. CARDIOVASCULAR: Normal. OSSEOUS STRUCTURES: Unchanged. VISUALIZED UPPER ABDOMEN: Inferior vena cava filter. OTHER FINDINGS: None. IMPRESSION: Low lung volumes. Questionable left basilar infiltrate versus atelectasis.
[2018-05-31] MEDS ORDERED: Albuterol-Ipratrop 3 mg / 0.5 (3 ml) UD ONE (16:26)
[2018-05-31 16:29] LABS: BASO # 0.1 K/uL (0.0-0.2); BASO % 0.9 % (0.0-2.0); EOS # 0.1 K/uL (0.0-0.7); EOS % 0.6 % (0.0-4.0); HEMOGLOBIN 13.5 g/dL (12.0-16.0); LYMPH # 2.2 K/uL (1.0-4.3); LYMPH % 22.6 % (20.0-40.0); MEAN CELL VOLUME 87.3 fl (81.0-99.0); MEAN CORPUSCULAR HEMOGLOBIN 29.6 pg (27.0-31.0); MEAN CORPUSCULAR HGB CONC 33.9 g/dL (33.0-37.0); MEAN PLATELET VOLUME 7.8 fl (7.2-11.7); MONO # 0.6 K/uL (0.0-0.8); MONO % 6.2 % (0.0-10.0); NEUT # 6.7 K/uL (1.8-7.0); NEUT % 69.7 % (50.0-75.0); NRBC % 0.1 % (0.0-0.0); RBC 4.57 Mil/uL (3.80-5.20); RED CELL DISTRIBUTION WIDTH 14.7 % (11.5-14.5); WHITE BLOOD COUNT 9.6 K/uL (4.8-10.8)
[2018-05-31 16:42] LABS: BLOOD UREA NITROGEN 7 mg/dl (7-17); CALCIUM 9.1 mg/dL (8.4-10.2); GFR NON-AFRICAN AMERICAN > 60
[2018-05-31] MEDS ORDERED: Azithromycin 500 MG in Sodium Chloride 0.9% 250 ML IVPB STA (16:51)
[2018-05-31] MEDS ORDERED: cefTRIAXone (Rocephin) 1 gm Inj ONE (17:12)
[2018-05-31] MEDS ORDERED: Azithromycin 500 MG IV IVPB ONE (17:13)
[2018-05-31 17:49] VITALS: PULSE 72; O2SAT 98
[2018-05-31 17:57] LABS: ALB/GLOB RATIO 1.3 (1.0-2.1); ALBUMIN 4.5 g/dL (3.5-5.0)
[2018-05-31 17:58] LABS: ALT/SGPT 35 U/L (9-52); AST/SGOT 27 U/L (14-36)
[2018-05-31 19:36] VITALS: BP 140/88; RESP 16
== END 2018-05-31 19:40 | disposition home or self-care (01) ==
LOC: H.ER 15:18
DX: J11.00 Influenza due to unidentified influenza virus with unspecified type of pneumonia (principal); G89.29 Other chronic pain; J45.909 Unspecified asthma, uncomplicated; Z86.73 Personal history of transient ischemic attack (TIA), and cerebral infarction without residual deficits
CPT/HCPCS: 71046; 80053; 85025; 87040; 96374; 96375; 99283; J0456; J0696; J1885; J2930